=== PATIENT | male | born 2000 | race Caucasian/White ===

== ENCOUNTER 2022-11-14 02:08 | Inpatient (IN) | payer OTHER, SELFPAY ==
[2022-11-14 02:19] VITALS: BP 142/86; PULSE 96; RESP 17; TEMP 36.6; O2SAT 97; BMI 31.9
--- NOTE | 2022-11-14 02:35 | ED.PSYCH ---
HPI - Psych General Chief Complaint: Psychiatric Symptoms Stated Complaint: SI Time Seen by Provider: 11/14/22 02:09 Source: patient Mode of arrival: ambulatory Limitations: no limitations History of Present Illness HPI Narrative: Patient comes to the emergency room well anteriorly, complaining of worsening depression and suicidal ideation without a plan. Patient states that he has been feeling intermittently with depression. Patient states that approximately 2 years ago, he broke up with his ex-girlfriend, seems that this was a trigger to worsening his depression. Patient states that he used to take Wellbutrin, seems that it was working fairly well. Gradually, the patient weaned off of it and has been without any medication for 1+ years. The patient did not inform me directly, but did tell his nurse that approximately 2 years ago he attempted suicide, no specifics were discussed Related Data Home Medications Medication Instructions Recorded Confirmed No Known Home Meds 11/14/22 11/14/22 Allergies Allergy/AdvReac Type Severity Reaction Status Date / Time amoxicillin AdvReac Intermediate Rash Verified 11/14/22 02:13 cefazolin AdvReac Hives Verified 11/14/22 02:14 Review of Systems Review of Systems: Constitutional : No Weight loss, No Fever, No Chills, No Night Sweats, No Fatigue, No Malaise ENT/Mouth : No Hearing loss, No Ear Pain, No Nasal Congestion, No Sinus Pain, No Hoarseness, No sore throat, No Rhinorrhea, No Swallowing Difficulty Eyes: No Eye Pain, No Swelling, No Redness, No Foreign Body, No Discharge, No Vision Changes Cardiovascular : No Chest Pain, No SOB, No Dyspnea on Exertion, No Orthopnea, No Edema, No Palpitations Respiratory : No Cough, No Sputum, No Wheezing, No Smoke Exposure, No Dyspnea Gastrointestinal : No Nausea, No Vomiting, No Diarrhea, No Constipation, No abdominal Pain, No Hematochezia, No Melena Genitourinary : no irregular bleeding, No Dysuria, No Urinary Frequency, No Hematuria, No Urinary Incontinence, No Urgency, No Flank Pain, No Urinary Flow Changes, No Hesitancy Musculoskeletal : No joint pain, No Myalgias, No Joint Swelling Skin : No Skin Lesions, No rash Neuro : No Weakness, No Numbness, No Paresthesias, No Loss of Consciousness, No Dizziness, No Headache Psych : Complaining of depression, suicidal ideation without a plan Heme/Lymph: No Bruising, No Bleeding,No Lymphadenopathy Endocrine : No Polyuria, No Polydipsia, No Temperature Intolerance PMFSH Past Medical History Medical History (Updated 11/14/22 @ 02:40 by Sofía Lott MD) Depression Physical Exam Vital Signs: Vital Signs: Last Vital Signs Temp 97.8 F 11/14/22 02:19 Pulse 96 11/14/22 02:19 Resp 17 11/14/22 02:19 BP 142/86 H 11/14/22 02:19 Pulse Ox 97 11/14/22 02:19 O2 Del Method 11/14/22 02:19 BMI result Body Mass Index 31.9 Const: Other: Appearance: Alert. Oriented X3. No acute distress. Eyes: Pupils equal, round and reactive to light. ENT: Pharynx normal. Neck: Normal inspection. Neck supple. No lymph nodes noted. No crepitus CVS: Normal heart rate and rhythm. Pulses normal. Normal S1 and S2 Respiratory: No respiratory distress. Breath sounds normal. No Wheezing. No rales Abdomen: Soft and nontender. No rigidity. No distention. Skin: Skin warm and dry. Normal skin color. Normal skin turgor. Extremities: No lower extremity edema. No Lacerations. No Rash Neuro: Oriented X 3. No motor deficit. No sensory deficit. Moving all extremities. No slurred speech. CN 2 through 12 grossly intact Psych: calm, cooperative, tearful Course Course Course Narrative: Care team consult pending. Labs pending. Physician observation started that 02:30 Discharge Plan Discharge Clinical Impression: Depression Patient Disposition: Still a Patient Prescriptions: No Action No Known Home Meds
[2022-11-14 03:13] LABS: MANUAL DIFF FLAG NO
[2022-11-14 03:14] LABS: Basophils Absolute Auto 0.1 X10*3/uL (0.0-0.2); Basophils Percent Auto 0.5 % (0-2); Eosinophils Absolute Auto 0.1 X10*3/uL (0.0-0.4); Eosinophils Percent Auto 0.7 % (0-4); Hematocrit 44.7 % (42.0-52.0); Hemoglobin 15.2 g/dl (14.0-18.0); Imm Gran Abs Auto 0.04 X10*3/uL (0.00-0.03); Imm Gran Pct Auto 0.3 % (0.0-0.4); Lymphocytes Absolute Auto 2.6 X10*3/uL (1.2-4.9); Mean Corpuscular Hemoglobin 30.3 pg (27.0-33.0); Monocytes Percent Auto 7.6 % (2-11); Neutrophils Absolute Auto 9.2 x10*3/uL (2.0-8.3); Neutrophils Percent Auto 70.9 % (45-73); Platelet Count 373 X10*3/uL (160-400); Red Blood Count 5.02 X10*6/uL (4.60-5.80); Red Cell Distribution Width 12.9 % (11.0-16.0)
[2022-11-14 03:28] LABS: Amphetamine Screen Urine Not Detected (Not Detect); Barbiturates, Urine Not Detected (Not Detect); Benzodiazepines Screen Urine Not Detected (Not Detect); Cannabinoid Screen Urine Not Detected (Not Detect); Cocaine Screen Urine Not Detected (Not Detect); Fentanyl, urine Not Detected (Not Detect); Opiate Screen Urine Not Detected (Not Detect); Phencyclidine Screen Urine Not Detected (Not Detect)
[2022-11-14 03:30] LABS: Alanine Aminotransferase 22 U/L (0-40); Albumin Level 4.9 g/dL (3.5-5.0); Alkaline Phosphatase 61 U/L (39-117); Anion Gap 16 (12-20); Aspartate Amino Transferase 21 U/L (5-37); Bilirubin Total 0.3 mg/dL (0.0-1.0); Blood Urea Nitrogen 12 mg/dL (9-16); Calcium 9.7 mg/dL (8.4-10.2); Carbon Dioxide 25 mmol/L (22-29); Chloride 106 mmol/L (96-108); Creatinine Clr Calc Pharmacy 134.2; Estimated Glomerular Filt Rate > 60; Ethanol 199 mg/dL; Glucose Random 99 mg/dL (60-115); Potassium 4.4 mmol/L (3.3-5.1); Sodium 143 mmol/L (135-145)
[2022-11-14 03:34] LABS: COVID-19 Test Negative (Negative); IDNOW Serial# 16C4AD1C
--- NOTE | 2022-11-14 06:09 | PC.NURSE ---
Patient is and restless and intermittently sleeping, behavior non concerning, BAL 199 at 0338 Gaby made aware, patient will be assessed by care team in the morning, med rec completed/patient is currently not on any medication, will continue to monitor.
--- NOTE | 2022-11-14 11:44 | PHA.MEDREC ---
Pharmacy Consult ? Medication Reconciliation Pharmacy has completed the medication reconciliation. Reviewed med rec done by nursing (Pola). Cross-referenced claim history to confirm.
--- NOTE | 2022-11-14 13:29 | PC.NURSE ---
nurse to nurse given
[2022-11-14 18:31] VITALS: BP 140/84; PULSE 68; RESP 17; TEMP 36.5; O2SAT 99
[2022-11-14 20:01] VITALS: BP 140/80; PULSE 76; RESP 18; TEMP 36.6
[2022-11-14] MEDS: Gabapentin 300 MG CAPSULE PO (21:40)
[2022-11-14] MEDS: LORazepam 1 MG TABLET PO (21:40)
[2022-11-14] MEDS: traZODone HCL 50 MG TABLET PO (21:40)
[2022-11-15 06:00] VITALS: BP 125/74; PULSE 83; RESP 18; TEMP 36.7; O2SAT 96
[2022-11-15] MEDS: Gabapentin 300 MG CAPSULE PO ×3 (09:37→22:08)
--- NOTE | 2022-11-15 12:59 | HO.PSYADMNOT ---
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 Patient reports that he struggle with depression for years and in 2019 attempted suicide. At hospitalization he was started on Wellbutrin which was helpful and stayed on it for several months. Patient however decided to quit Wellbutrin because he knew he wanted to keep drinking and thought the 2 should not be combined; eventually he started drinking daily. About 6 months ago his depression started to worsen as did his anxiety. About 3 months ago his girlfriend broke up with him which cast him into a much deeper depression and patient developed diminished interest, low energy, poor concentration; his appetite fluctuated to over eating to hardly eating; trouble sleeping, or sleeping throughout the day; patient started missing work calling out sick due to depression. Over the past week he started having suicidal thoughts that maybe he would be better off . He did not have any plans or intention but the thoughts continued to come so told his father and came to the hospital. He still has passive thoughts of being but no intent or plans and wants help. For the past year patient has been drinking about 1/2-1 L of vodka a day; denies history of withdrawal; denies all other drug use; denies history of manic type episodes or behaviors; denies history of trauma. Patient endorses much anxiety, especially in the context social settings and even more so friendships and worries about how he is perceived. Patient agrees to get back on Wellbutrin as it helped with both depression and anxiety. 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 Past Psychiatric History: Psychiatric hospitalization 2019 at [facility] for suicide attempt; started on Wellbutrin at that time Medical Evaluation Reviewed: Yes [facility] Medical History (Updated 11/15/22 @ 17:36 by Tio Owen MD) Depression MDD (major depressive disorder), recurrent episode, severe Social anxiety disorder Family History: Mother: anxiety/depression Paternal uncle: Schizophrenia Social History: Lives at home with his parents Last year graduate school for counseling; 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 Substance History: Daily alcohol abuse up to a L a day of vodka; denies history of alcohol withdrawal Trauma History: Denies Diagnostics Vital Signs (24Hr): Vital Signs - 24 hr 11/14/22 18:31 11/14/22 20:01 11/15/22 06:00 Temperature 97.7 F 97.8 F 98.1 F Pulse Rate 68 76 83 Respiratory Rate 17 18 18 Blood Pressure 140/84 H 140/80 H 125/74 Pulse Oximetry 99 96 Oxygen Delivery Method Room Air Room Air BMI result Body Mass Index 31.9 Labs Results: 11/14/22 03:08 11/14/22 03:08 Labs: Laboratory Results - last 48 hr 11/14/22 11/14/22 11/14/22 02:50 02:51 03:08 WBC RBC Hgb Hct MCV MCH MCHC RDW Plt Count MPV Immature Gran % (Auto) Neut % (Auto) Lymph % (Auto) [place] % (Auto) Eos % (Auto) Baso % (Auto) Lymph # (Auto) [place] # (Auto) Eos # (Auto) Baso # (Auto) Abs Immat Gran (auto) Absolute Neuts (auto) Absolute Nucleated RBC Nucleated RBC % (auto) Sodium 143 Potassium 4.4 Chloride 106 Carbon Dioxide 25 Anion Gap 16 BUN 12 Creatinine 0.92 Estim Creat Clear Calc 134.2 Estimated GFR > 60 Random Glucose 99 Calcium 9.7 Total Bilirubin 0.3 AST 21 ALT 22 Alkaline Phosphatase 61 Total Protein 8.0 Albumin 4.9 Urine Opiates Screen Not Detected Urine Fentanyl Screen Not Detected Ur Barbiturates Screen Not Detected Ur Phencyclidine Scrn Not Detected Ur Amphetamines Screen Not Detected U Benzodiazepines Scrn Not Detected Urine Cocaine Screen Not Detected U Marijuana (THC) Screen Not Detected Ethyl Alcohol 199 COVID-19 ([facility]) Negative COVID-19 Clin Com See Note 11/14/22 03:08 WBC 13.0 H RBC 5.02 Hgb 15.2 Hct 44.7 MCV 89.0 MCH 30.3 MCHC 34.0 RDW 12.9 Plt Count 373 MPV 10.0 Immature Gran % (Auto) 0.3 Neut % (Auto) 70.9 Lymph % (Auto) 20.0 [place] % (Auto) 7.6 Eos % (Auto) 0.7 Baso % (Auto) 0.5 Lymph # (Auto) 2.6 [place] # (Auto) 1.0 Eos # (Auto) 0.1 Baso # (Auto) 0.1 Abs Immat Gran (auto) 0.04 H Absolute Neuts (auto) 9.2 H Absolute Nucleated RBC 0.000 Nucleated RBC % (auto) 0.0 Sodium Potassium Chloride Carbon Dioxide Anion Gap BUN Creatinine Estim Creat Clear Calc Estimated GFR Random Glucose Calcium Total Bilirubin AST ALT Alkaline Phosphatase Total Protein Albumin Urine Opiates Screen Urine Fentanyl Screen Ur Barbiturates Screen Ur Phencyclidine Scrn Ur Amphetamines Screen U Benzodiazepines Scrn Urine Cocaine Screen U Marijuana (THC) Screen Ethyl Alcohol COVID-19 ([facility]) COVID-19 Clin Com Meds/Allergies Meds Home Medications Medication Instructions Recorded Confirmed Type No Known Home Meds 11/14/22 11/14/22 History Allergies Allergies Allergy/AdvReac Type Severity Reaction Status Date / Time amoxicillin AdvReac Intermediate Rash Verified 11/14/22 02:13 cefazolin AdvReac Hives Verified 11/14/22 02:14 Mental Status Exam Mental Status Exam Narrative: Pt is alert and oriented; behavior is cooperative, friendly and calm; patient is not in distress; dressed in casual attire, scruffy elliott but well groomed with adequate hygiene; mood is described as anxious...depressed and affect congruent; eye contact appropriate; Speech is normal rate, volume and prosody and not pressured; no psychomotor agitation/retardation present; thought process is organized and goal directed; Thought content is on getting help; otherwise pertinent to relevant topics and without any delusional content, paranoid ideations or grandiosity; intermittent passive SI; no HI. There is no evidence of perceptual disturbance and denies AVH. Patients insight and judgment are impaired. 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 -alcoholism clearly contributing to depression; patient remains depressed but SI is clearing. Patient presenting for help. -thankfully patient has resources and is nearing and graduate school, has a job and supportive parents -patient is low scoring on CIWA Plan: CV Q 15 minutes checks Continue CIWA for now; low scoring. Likely able to discontinue soon Continue gabapentin taper Restart Wellbutrin XL 150 mg daily Trazodone 50 mg q.h.s. p.r.n. for insomnia Clonidine 0.1 mg q.4 PRN for anxiety insomnia Will seek collateral Patient agrees that he needs therapy and wants help setting this up Patient educated on: diagnosis, medication risk/benefits, substance abuse and therapeutic strategies Informed Consent: understands Reason for continued inpatient stay Substantial Risk for: rapid decompensation Statement Statement: I have reviewed the history and physical and performed a pertinent examination on my patient. No changes have occurred unless specified. Time Spent With Patient Time: Total time managing care of this patient today ____ minutes.
[2022-11-15 18:00] VITALS: BP 132/77; PULSE 74; RESP 18; TEMP 36.4; O2SAT 99
[2022-11-15] MEDS: cloNIDine HCL 0.1 MG TABLET PO (18:35)
[2022-11-15] MEDS: traZODone HCL 50 MG TABLET PO (22:08)
[2022-11-16 06:00] VITALS: BP 126/75; PULSE 78; RESP 14; TEMP 36.4; O2SAT 100
[2022-11-16] MEDS: buPROPion HCl XL 150 MG TAB.ER.24H PO (08:53)
[2022-11-16] MEDS: Gabapentin 300 MG CAPSULE PO ×3 (08:54→21:58)
--- NOTE | 2022-11-16 15:13 | HO.PSYCHPN ---
Subjective Subjective Date of Service: 11/16/22 Reason For Visit: depression Interim History: pt says feeling a little better; still some transient SI thoughts; tolerating meds. No w/drawal. Sleep ok -talked about relationship with mom, worried that talking w/ her will unravel her since she's already helping her demented brother. Instead, talks w/ his dad Mental Status Exam Mental Status Exam Narrative: Pt is alert and oriented; behavior is cooperative, friendly and calm; patient is not in distress; dressed in casual attire, scruffy elliott but well groomed with adequate hygiene; mood is described as anxious...depressed and affect congruent; eye contact appropriate; Speech is normal rate, volume and prosody and not pressured; no psychomotor agitation/retardation present; thought process is organized and goal directed; Thought content is on getting help; otherwise pertinent to relevant topics and without any delusional content, paranoid ideations or grandiosity; intermittent passive SI; no HI. There is no evidence of perceptual disturbance and denies AVH. Patients insight and judgment are impaired. Diagnostics Vital Signs (24Hr): Vital Signs - 24 hr 11/15/22 18:00 11/16/22 06:00 Temperature 97.5 F 97.5 F Pulse Rate 74 78 Respiratory Rate 18 14 Blood Pressure 132/77 126/75 Pulse Oximetry 99 100 Oxygen Delivery Method Room Air Room Air BMI result Body Mass Index 31.9 Labs Results: 11/14/22 03:08 11/14/22 03:08 Medications Medications Current Medications Acetaminophen (Acetaminophen 325 Mg Tablet) 650 mg PO Q6H PRN PRN Reason: Headache/Pain Mild Scale (1-3) Al Hydroxide/Mg Hydroxide (Magnesium Hydrox/Alum Hydrox 30 Ml Oral.Susp) 30 ml PO Q6H PRN PRN Reason: Heartburn/Nausea Bupropion HCl (Bupropion Hcl Xl 150 Mg Tab.Er.24h) 150 mg PO DAILY RODOLFO Last Admin: 11/16/22 08:53 Dose: 150 mg Clonidine HCl (Clonidine Hcl 0.1 Mg Tablet) 0.1 mg PO Q4H PRN; Protocol PRN Reason: anxiety Last Admin: 11/15/22 18:35 Dose: 0.1 mg Gabapentin (Gabapentin 300 Mg Capsule) 300 mg PO TID RODOLFO Stop: 11/16/22 23:50 Last Admin: 11/16/22 14:02 Dose: 300 mg Gabapentin (Gabapentin 300 Mg Capsule) 300 mg PO BID RODOLFO Lorazepam (Lorazepam 1 Mg Tablet) 1 mg PO Q2H PRN PRN Reason: CIWA 6-10 Last Admin: 11/14/22 21:40 Dose: 1 mg Lorazepam (Lorazepam 1 Mg Tablet) 2 mg PO Q2H PRN PRN Reason: CIWA 11 and above Magnesium Hydroxide (Milk Of Magnesia 30 Ml Oral.Susp) 30 ml PO DAILY PRN PRN Reason: Constipation Nicotine Polacrilex (Nicotine Polacrilex 2 Mg Gum) 4 mg BUCCAL Q2H PRN PRN Reason: Nicotine Cravings Trazodone HCl (Trazodone Hcl 50 Mg Tablet) 50 mg PO BEDTIME PRN PRN Reason: Insomnia Last Admin: 11/15/22 22:08 Dose: 50 mg Allergies Allergies Allergy/AdvReac Type Severity Reaction Status Date / Time amoxicillin AdvReac Intermediate Rash Verified 11/14/22 02:13 cefazolin AdvReac Hives Verified 11/14/22 02:14 Assessment & Plan Assessment & Plan (1) MDD (major depressive disorder), recurrent episode, severe: Status: Acute Code(s): F33.2 - Major depressive disorder, recurrent severe without psychotic features (2) Social anxiety disorder: Status: Acute Code(s): F40.10 - Social phobia, unspecified Plan 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 -alcoholism clearly contributing to depression; patient remains depressed but SI is clearing. Patient presenting for help. -thankfully patient has resources and is nearing and graduate school, has a job and supportive parents -patient is low scoring on CIWA 11/16 little better; momentary SI; tolerating meds. attending groups Plan: CV Q 15 minutes checks DC CIWA; no symptoms Continue gabapentin taper Restart Wellbutrin XL 150 mg daily; lilialey taper Trazodone 50 mg q.h.s. p.r.n. for insomnia Clonidine 0.1 mg q.4 PRN for anxiety insomnia Will seek collateral Patient agrees that he needs therapy and wants help setting this up I spent minutes with the patient and/or on the patient floor today, greater than?50% of which was spent counseling/coordinating care. Patient educated on: diagnosis and medication risk/benefits Informed Consent: understands Reason for contiued inpatient stay Substantial Risk for: rapid decompensation Time Spent With Patient Time: Total time managing care of this patient today ____ minutes.
--- NOTE | 2022-11-16 16:01 | MHC.CLN ---
NUTRITION CONSULT CONSULT FOR WEIGHT LOSS. PATIENT WOULD LIKE TO MAINTAIN WEIGHT AND INCREASE PROTEIN. ADDING ENSURE MAX PROTEIN BID TO PROVIDE ADDITIONAL 300 KCALS, 60 G PROTEIN.
[2022-11-16 18:00] VITALS: BP 127/66; PULSE 87; TEMP 36.3
[2022-11-16] MEDS: traZODone HCL 50 MG TABLET PO (21:59)
[2022-11-17] MEDS: buPROPion HCl XL 150 MG TAB.ER.24H PO (08:46)
[2022-11-17] MEDS: Gabapentin 300 MG CAPSULE PO ×2 (08:46→20:54)
[2022-11-17 08:48] VITALS: BP 120/61; PULSE 74; RESP 18; TEMP 36.2; O2SAT 98
[2022-11-17] MEDS: Acetaminophen 325 MG TABLET 975 MG PO (11:09)
[2022-11-17] MEDS: cloNIDine HCL 0.1 MG TABLET PO ×2 (13:11→20:53)
[2022-11-17 13:13] VITALS: BP 135/61; PULSE 81
--- NOTE | 2022-11-17 14:40 | HO.PSYCHPN ---
Subjective Subjective Date of Service: 11/17/22 Reason For Visit: depression Interim History: Patient said mood is a little better today. Denies any SI at all. Said he had a little trouble sleeping last night, just thinking about things but agrees to have clonidine scheduled at bedtime tonight to see if that is helpful. Also agrees to increase Wellbutrin to 300 mg, the dose he was on before. Patient has been attending groups and says it has been helpful. Chemical Librarian and patient also discussed risks of relapse and patient said his plan is to go to AA groups immediately on discharge. He shared that his uncle is of a recovering alcoholic and lives at his house and will be a helpful resource. Mental Status Exam Mental Status Exam Narrative: Pt is alert and oriented; behavior is cooperative, friendly and calm; patient is not in distress; dressed in casual attire, scruffy elliott but well groomed with adequate hygiene; mood is described as a little better and affect congruent; eye contact appropriate; Speech is normal rate, volume and prosody and not pressured; no psychomotor agitation/retardation present; thought process is organized and goal directed; Thought content is on getting help; otherwise pertinent to relevant topics and without any delusional content, paranoid ideations or grandiosity; No SI; no HI. There is no evidence of perceptual disturbance and denies AVH. Patients insight and judgment are improving. Diagnostics Vital Signs (24Hr): Vital Signs - 24 hr 11/16/22 18:00 11/17/22 08:48 11/17/22 13:13 Temperature 97.4 F 97.2 F Pulse Rate 87 74 81 Respiratory Rate 18 Blood Pressure 127/66 120/61 135/61 Pulse Oximetry 98 Oxygen Delivery Method Room Air BMI result Body Mass Index 31.9 Labs Results: 11/14/22 03:08 11/14/22 03:08 Medications Medications Current Medications Acetaminophen (Acetaminophen 325 Mg Tablet) 975 mg PO TID PRN PRN Reason: Headache/Pain Mild Scale (1-3) Last Admin: 11/17/22 11:09 Dose: 975 mg Al Hydroxide/Mg Hydroxide (Magnesium Hydrox/Alum Hydrox 30 Ml Oral.Susp) 30 ml PO Q6H PRN PRN Reason: Heartburn/Nausea Clonidine HCl (Clonidine Hcl 0.1 Mg Tablet) 0.1 mg PO Q4H PRN; Protocol PRN Reason: anxiety Last Admin: 11/17/22 13:11 Dose: 0.1 mg Gabapentin (Gabapentin 300 Mg Capsule) 300 mg PO BID RODOLFO Stop: 11/18/22 23:00 Last Admin: 11/17/22 08:46 Dose: 300 mg Magnesium Hydroxide (Milk Of Magnesia 30 Ml Oral.Susp) 30 ml PO DAILY PRN PRN Reason: Constipation Nicotine Polacrilex (Nicotine Polacrilex 2 Mg Gum) 4 mg BUCCAL Q2H PRN PRN Reason: Nicotine Cravings Trazodone HCl (Trazodone Hcl 50 Mg Tablet) 50 mg PO BEDTIME PRN PRN Reason: Insomnia Last Admin: 11/16/22 21:59 Dose: 50 mg Allergies Allergies Allergy/AdvReac Type Severity Reaction Status Date / Time amoxicillin AdvReac Intermediate Rash Verified 11/14/22 02:13 cefazolin AdvReac Hives Verified 11/14/22 02:14 Assessment & Plan Assessment & Plan (1) MDD (major depressive disorder), recurrent episode, severe: Status: Acute Code(s): F33.2 - Major depressive disorder, recurrent severe without psychotic features (2) Social anxiety disorder: Status: Acute Code(s): F40.10 - Social phobia, unspecified Plan 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 -alcoholism clearly contributing to depression; patient remains depressed but SI is clearing. Patient presenting for help. -thankfully patient has resources and is nearing and graduate school, has a job and supportive parents -patient is low scoring on CIWA 11/16 little better; momentary SI; tolerating meds. attending groups 11/17 patient improving; mood a little better and no SI today. Still trouble sleeping. Agrees to adjusting medications further. Also discussed disposition. Patient remains engaged in treatment, attending groups, forthcoming in interview sessions. Discussed case with social worker delinquency prevention as well as nursing agree patient seems to be improving. Plan: CV Q 15 minutes checks DC CIWA; no symptoms Continue gabapentin taper Increase to Wellbutrin XL 300 mg daily; Trazodone 50 mg q.h.s. p.r.n. for insomnia Clonidine 0.1 mg q.4 PRN for anxiety insomnia Clonidine 0.1 mg q.h.s. Patient agrees that he needs therapy and wants help setting this up; also agrees to AA I spent minutes with the patient and/or on the patient floor today, greater than?50% of which was spent counseling/coordinating care. Patient educated on: diagnosis and medication risk/benefits Informed Consent: understands Reason for contiued inpatient stay Substantial Risk for: stable for discharge Time Spent With Patient Time: Total time managing care of this patient today ____ minutes.
[2022-11-17 18:00] VITALS: BP 138/62; PULSE 73; RESP 16; TEMP 36.3; O2SAT 98
[2022-11-17] MEDS: traZODone HCL 50 MG TABLET PO (22:16)
[2022-11-18] MEDS: Gabapentin 300 MG CAPSULE PO ×2 (09:11→19:21)
[2022-11-18] MEDS: buPROPion HCl XL 300 MG TAB.ER.24H PO (09:11)
[2022-11-18 09:13] VITALS: BP 128/70; PULSE 82; RESP 98; TEMP 36.2; O2SAT 98
--- NOTE | 2022-11-18 10:22 | HO.PSYCHPN ---
Subjective Subjective Date of Service: 11/18/22 Reason For Visit: depression Interim History: Patient reports feeling better today. No SI. Says he was able to sleep better with the clonidine and trazodone together agrees to have both them scheduled. Patient said he had some bouts of anxiety but was able to use coping skills which he has learned on the unit and his anxiety state under good control. Patient is ambivalent about partial, saying he still needs to work however he will check on his work schedule. Aftercare being set up by social media coordinator. Patient also tolerating increased Wellbutrin. Mental Status Exam Mental Status Exam Narrative: Pt is alert and oriented; behavior is cooperative, friendly and calm; patient is not in distress; dressed in casual attire, scruffy elliott but well groomed with adequate hygiene; mood is described as good and affect congruent; eye contact appropriate; Speech is normal rate, volume and prosody and not pressured; no psychomotor agitation/retardation present; thought process is organized and goal directed; Thought content is on staying stable; otherwise pertinent to relevant topics and without any delusional content, paranoid ideations or grandiosity; No SI; no HI. There is no evidence of perceptual disturbance and denies AVH. Patients insight and judgment are fair. Diagnostics Vital Signs (24Hr): Vital Signs - 24 hr 11/17/22 13:13 11/17/22 18:00 11/18/22 09:13 Temperature 97.3 F 97.2 F Pulse Rate 81 73 82 Respiratory Rate 16 98 H Blood Pressure 135/61 138/62 128/70 Pulse Oximetry 98 98 Oxygen Delivery Method Room Air Room Air BMI result Body Mass Index 31.9 Labs Results: 11/14/22 03:08 11/14/22 03:08 Medications Medications Current Medications Acetaminophen (Acetaminophen 325 Mg Tablet) 975 mg PO TID PRN PRN Reason: Headache/Pain Mild Scale (1-3) Last Admin: 11/17/22 11:09 Dose: 975 mg Al Hydroxide/Mg Hydroxide (Magnesium Hydrox/Alum Hydrox 30 Ml Oral.Susp) 30 ml PO Q6H PRN PRN Reason: Heartburn/Nausea Bupropion HCl (Bupropion Hcl Xl 300 Mg Tab.Er.24h) 300 mg PO DAILY RODOLFO Last Admin: 11/18/22 09:11 Dose: 300 mg Clonidine HCl (Clonidine Hcl 0.1 Mg Tablet) 0.1 mg PO Q4H PRN; Protocol PRN Reason: anxiety Last Admin: 11/17/22 13:11 Dose: 0.1 mg Clonidine HCl (Clonidine Hcl 0.1 Mg Tablet) 0.1 mg PO BEDTIME RODOLFO; Protocol Last Admin: 11/17/22 20:53 Dose: 0.1 mg Gabapentin (Gabapentin 300 Mg Capsule) 300 mg PO BID RODOLFO Stop: 11/18/22 23:00 Last Admin: 11/18/22 09:11 Dose: 300 mg Gabapentin (Gabapentin 300 Mg Capsule) 300 mg PO DAILY RODOLFO Magnesium Hydroxide (Milk Of Magnesia 30 Ml Oral.Susp) 30 ml PO DAILY PRN PRN Reason: Constipation Nicotine Polacrilex (Nicotine Polacrilex 2 Mg Gum) 4 mg BUCCAL Q2H PRN PRN Reason: Nicotine Cravings Trazodone HCl (Trazodone Hcl 50 Mg Tablet) 50 mg PO BEDTIME PRN PRN Reason: Insomnia Last Admin: 11/17/22 22:16 Dose: 50 mg Allergies Allergies Allergy/AdvReac Type Severity Reaction Status Date / Time amoxicillin AdvReac Intermediate Rash Verified 11/14/22 02:13 cefazolin AdvReac Hives Verified 11/14/22 02:14 Assessment & Plan Assessment & Plan (1) MDD (major depressive disorder), recurrent episode, severe: Status: Acute Code(s): F33.2 - Major depressive disorder, recurrent severe without psychotic features (2) Social anxiety disorder: Status: Acute Code(s): F40.10 - Social phobia, unspecified Plan 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 -alcoholism clearly contributing to depression; patient remains depressed but SI is clearing. Patient presenting for help. -thankfully patient has resources and is nearing and graduate school, has a job and supportive parents -patient is low scoring on CIWA 11/16 little better; momentary SI; tolerating meds. attending groups 11/17 patient improving; mood a little better and no SI today. Still trouble sleeping. Agrees to adjusting medications further. Also discussed disposition. Patient remains engaged in treatment, attending groups, forthcoming in interview sessions. Discussed case with social media coordinator as well as nursing agree patient seems to be improving. 11/18 continues to improve and again no SI today. If he remains stable will proceed with discharge plans for Wednesday. Patient tolerating increased dose of Wellbutrin. Would like trazodone scheduled to bedtime. Remains engaged in treatment, groups and is using coping skills effectively Plan: CV Q 15 minutes checks Continue gabapentin taper Increase to Wellbutrin XL 300 mg daily; Trazodone 50 mg q.h.s. and extra 50 mg as p.r.n. for continued insomnia Clonidine 0.1 mg q.4 PRN for anxiety insomnia Clonidine 0.1 mg q.h.s. Patient agrees that he needs therapy and wants help setting this up; also agrees to AA I spent minutes with the patient and/or on the patient floor today, greater than?50% of which was spent counseling/coordinating care. Patient educated on: diagnosis and medication risk/benefits Informed Consent: understands Reason for contiued inpatient stay Substantial Risk for: stable for discharge Time Spent With Patient Time: Total time managing care of this patient today ____ minutes.
[2022-11-18 17:11] VITALS: BP 120/63; PULSE 65; RESP 16; TEMP 36.6; O2SAT 99
[2022-11-18] MEDS: traZODone HCL 50 MG TABLET PO (19:22)
[2022-11-18] MEDS: cloNIDine HCL 0.1 MG TABLET PO (19:22)
[2022-11-19 07:00] VITALS: BMI 32.4
[2022-11-19] MEDS: buPROPion HCl XL 300 MG TAB.ER.24H PO (09:08)
[2022-11-19] MEDS: Gabapentin 300 MG CAPSULE PO (09:09)
[2022-11-19 09:11] VITALS: BP 125/66; PULSE 70; RESP 18; TEMP 36.4; O2SAT 100
--- NOTE | 2022-11-19 10:30 | P.PNPSI_ITS ---
Subjective Subjective Date of Service: 11/19/22 Reason For Visit: depression Interim History: pt report he's in a good mood and feels ready for discharge. He says his anxiety is manageable and he's tolerating medications well; pt says he slept well last night. Mental Status Exam Mental Status Exam Narrative: Pt is alert and oriented; behavior is cooperative, friendly and calm; patient is not in distress; dressed in casual attire, scruffy elliott but well groomed with adequate hygiene; mood is described as good and affect congruent; eye contact appropriate; Speech is normal rate, volume and prosody and not pressured; no psychomotor agitation/retardation present; thought process is organized and goal directed; Thought content is on staying stable; otherwise pertinent to relevant topics and without any delusional content, paranoid ideations or grandiosity; No SI; no HI. There is no evidence of perceptual disturbance and denies AVH. Patients insight and judgment are fair. Diagnostics Vital Signs (24Hr): Vital Signs - 24 hr 11/18/22 17:11 11/19/22 09:11 Temperature 97.9 F 97.6 F Pulse Rate 65 70 Respiratory Rate 16 18 Blood Pressure 120/63 125/66 Pulse Oximetry 99 100 Oxygen Delivery Method Room Air Room Air BMI result Body Mass Index 32.4 Labs Results: 11/14/22 03:08 11/14/22 03:08 Medications Medications Current Medications Acetaminophen (Acetaminophen 325 Mg Tablet) 975 mg PO TID PRN PRN Reason: Headache/Pain Mild Scale (1-3) Last Admin: 11/17/22 11:09 Dose: 975 mg Al Hydroxide/Mg Hydroxide (Magnesium Hydrox/Alum Hydrox 30 Ml Oral.Susp) 30 ml PO Q6H PRN PRN Reason: Heartburn/Nausea Bupropion HCl (Bupropion Hcl Xl 300 Mg Tab.Er.24h) 300 mg PO DAILY RODOLFO Last Admin: 11/19/22 09:08 Dose: 300 mg Clonidine HCl (Clonidine Hcl 0.1 Mg Tablet) 0.1 mg PO Q4H PRN; Protocol PRN Reason: anxiety Last Admin: 11/17/22 13:11 Dose: 0.1 mg Clonidine HCl (Clonidine Hcl 0.1 Mg Tablet) 0.1 mg PO BEDTIME RODOLFO; Protocol Last Admin: 11/18/22 19:22 Dose: 0.1 mg Gabapentin (Gabapentin 300 Mg Capsule) 300 mg PO DAILY [facility] Last Admin: 11/19/22 09:09 Dose: 300 mg Magnesium Hydroxide (Milk Of Magnesia 30 Ml Oral.Susp) 30 ml PO DAILY PRN PRN Reason: Constipation Nicotine Polacrilex (Nicotine Polacrilex 2 Mg Gum) 4 mg BUCCAL Q2H PRN PRN Reason: Nicotine Cravings Trazodone HCl (Trazodone Hcl 50 Mg Tablet) 50 mg PO BEDTIME [facility] Last Admin: 11/18/22 19:22 Dose: 50 mg Trazodone HCl (Trazodone Hcl 50 Mg Tablet) 50 mg PO BEDTIME PRN PRN Reason: continued insomnia Allergies Allergies Allergy/AdvReac Type Severity Reaction Status Date / Time amoxicillin AdvReac Intermediate Rash Verified 11/14/22 02:13 cefazolin AdvReac Hives Verified 11/14/22 02:14 Assessment & Plan Assessment & Plan (1) MDD (major depressive disorder), recurrent episode, severe: Status: Acute Code(s): F33.2 - Major depressive disorder, recurrent severe without psychotic features (2) Social anxiety disorder: Status: Acute Code(s): F40.10 - Social phobia, unspecified Plan 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 -alcoholism clearly contributing to depression; patient remains depressed but SI is clearing. Patient presenting for help. -thankfully patient has resources and is nearing and graduate school, has a job and supportive parents -patient is low scoring on CIWA 11/16 little better; momentary SI; tolerating meds. attending groups 11/17 patient improving; mood a little better and no SI today. Still trouble sleeping. Agrees to adjusting medications further. Also discussed disposition. Patient remains engaged in treatment, attending groups, forthcoming in interview sessions. Discussed case with social psychologist as well as nursing agree patient seems to be improving. 11/18 continues to improve and again no SI today. If he remains stable will proceed with discharge plans for Wednesday. Patient tolerating increased dose of Wellbutrin. Would like trazodone scheduled to bedtime. 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 Plans to go to AA; he's optimistic about sobriety; pt not in imminent risk of harm to self or others and appropriate to continue tx in the community Plan: CV Q 15 minutes checks Continue gabapentin taper Wellbutrin XL 300 mg daily; Trazodone 50 mg q.h.s. and extra 50 mg as p.r.n. for continued insomnia Clonidine 0.1 mg q.4 PRN for anxiety insomnia Clonidine 0.1 mg q.h.s. Patient agrees that he needs therapy and wants help setting this up; also agrees to AA I spent minutes with the patient and/or on the patient floor today, greater than?50% of which was spent counseling/coordinating care. Patient educated on: diagnosis Informed Consent: understands Reason for contiued inpatient stay Substantial Risk for: stable for discharge Time Spent With Patient Time: Total time managing care of this patient today ____ minutes.
[2022-11-19] MEDS: Acetaminophen 325 MG TABLET 975 MG PO (10:59)
[2022-11-19 18:00] VITALS: BP 126/68; PULSE 68; RESP 16; TEMP 36.4; O2SAT 96
--- NOTE | 2022-11-19 20:57 | PM.PSYDC ---
DS: Providers Provider Date of Service: 11/20/22 Date of admission: 11/14/22 18:43 Date of discharge: 11/20/22 Primary care physician: None Physician Attending physician on admission: Tio Owen Attending physician on discharge: Tio Owen DS: Diagnosis Discharge Diagnosis (1) MDD (major depressive disorder), recurrent episode, severe: Status: Acute (2) Social anxiety disorder: Status: Acute DS: Medications Discharge Medications Home Medications: Home Medications Medication Instructions Recorded Confirmed No Known Home Meds 11/14/22 11/14/22 Previous Rx's Medication Instructions Recorded bupropion HCl 300 mg 24 hr tablet, 300 mg PO DAILY 30 days #30 tabs 11/19/22 extended release clonidine HCl 0.1 mg tablet 0.1 mg PO Q4H PRN anxiety/insomnia 11/19/22 30 days #90 tabs trazodone 50 mg tablet 50 mg PO BEDTIME PRN continued 11/19/22 insomnia 30 days #30 tabs Mental Status Exam Mental Status Exam Narrative: Pt is alert and oriented; behavior is cooperative, friendly and calm; patient is not in distress; dressed in casual attire, scruffy elliott but well groomed with adequate hygiene; mood is described as good and affect congruent; eye contact appropriate; Speech is normal rate, volume and prosody and not pressured; no psychomotor agitation/retardation present; thought process is organized and goal directed; Thought content is on staying stable; otherwise pertinent to relevant topics and without any delusional content, paranoid ideations or grandiosity; No SI; no HI. There is no evidence of perceptual disturbance and denies AVH. Patients insight and judgment are fair. Data Data Completed and Pending Completed studies during hospitalization [Text1]: 11/14/22 11/14/22 11/14/22 02:50 02:51 03:08 WBC RBC Hgb Hct MCV MCH MCHC RDW Plt Count MPV Immature Gran % (Auto) Neut % (Auto) Lymph % (Auto) [place] % (Auto) Eos % (Auto) Baso % (Auto) Lymph # (Auto) [place] # (Auto) Eos # (Auto) Baso # (Auto) Abs Immat Gran (auto) Absolute Neuts (auto) Absolute Nucleated RBC Nucleated RBC % (auto) Sodium 143 Potassium 4.4 Chloride 106 Carbon Dioxide 25 Anion Gap 16 BUN 12 Creatinine 0.92 Estim Creat Clear Calc 134.2 Estimated GFR > 60 Random Glucose 99 Calcium 9.7 Total Bilirubin 0.3 AST 21 ALT 22 Alkaline Phosphatase 61 Total Protein 8.0 Albumin 4.9 Urine Opiates Screen Not Detected Urine Fentanyl Screen Not Detected Ur Barbiturates Screen Not Detected Ur Phencyclidine Scrn Not Detected Ur Amphetamines Screen Not Detected U Benzodiazepines Scrn Not Detected Urine Cocaine Screen Not Detected U Marijuana (THC) Screen Not Detected Ethyl Alcohol 199 COVID-19 ([facility]) Negative COVID-19 Clin Com See Note 11/14/22 03:08 WBC 13.0 H RBC 5.02 Hgb 15.2 Hct 44.7 MCV 89.0 MCH 30.3 MCHC 34.0 RDW 12.9 Plt Count 373 MPV 10.0 Immature Gran % (Auto) 0.3 Neut % (Auto) 70.9 Lymph % (Auto) 20.0 [place] % (Auto) 7.6 Eos % (Auto) 0.7 Baso % (Auto) 0.5 Lymph # (Auto) 2.6 [place] # (Auto) 1.0 Eos # (Auto) 0.1 Baso # (Auto) 0.1 Abs Immat Gran (auto) 0.04 H Absolute Neuts (auto) 9.2 H Absolute Nucleated RBC 0.000 Nucleated RBC % (auto) 0.0 Sodium Potassium Chloride Carbon Dioxide Anion Gap BUN Creatinine Estim Creat Clear Calc Estimated GFR Random Glucose Calcium Total Bilirubin AST ALT Alkaline Phosphatase Total Protein Albumin Urine Opiates Screen Urine Fentanyl Screen Ur Barbiturates Screen Ur Phencyclidine Scrn Ur Amphetamines Screen U Benzodiazepines Scrn Urine Cocaine Screen U Marijuana (THC) Screen Ethyl Alcohol COVID-19 ([facility]) COVID-19 Clin Com DS: Summary Hospital Course Hospital Course: HPI: 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 -alcoholism clearly contributing to depression; patient remains depressed but SI is clearing.? Patient presenting for help. -thankfully patient has resources and is nearing and graduate school, has a job and supportive parents -patient is low scoring on [facility] Hospital course: 11/16 little better; momentary SI; tolerating meds. attending groups 11/17 patient improving; mood a little better and no SI today.? Still trouble sleeping.? Agrees to adjusting medications further.? Also discussed disposition.? Patient remains engaged in treatment, attending groups, forthcoming in interview sessions.? Discussed case with bilingual social worker as well as nursing agree patient seems to be improving. 11/18 continues to improve and again no SI today.? If he remains stable will proceed with discharge plans for Wednesday.? Patient tolerating increased dose of Wellbutrin.? Would like trazodone scheduled to bedtime.? Remains engaged in treatment, groups and is using coping skills effectively Patient appropriate with peers and staff; patient has demonstrated good behavioral and impulse control on the unit. 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 Plans to go to AA; he's optimistic about sobriety; pt not in imminent risk of harm to self or others and appropriate to continue tx in the community Time spent discussing smoking cessation with patient: 3 to 10 minutes Status at Discharge Functional status at discharge: independent ambulation Overall status at discharge: patient is back to baseline Time Spent with Patient Time attestation: Total time managing care of this patient today ____ minutes. Time spent: Less than 30 minutes Discharge Plan Discharge Anticipated Discharge Date/Time: 11/20/22 13:00 Patient Disposition: Home, Self-Care Discharge Diagnosis: MDD, recurrent, severe in full remission Referrals: Sheila Feldman [Other] - 11/27/22 1:00 pm (Initial diagnostic evaluation for therapy Appointment is by tele-health. Please Check your email for a link to the appointment.) Nadia Uriarte [Other] - 12/17/22 11:00 am (Initial diagnostic evaluation for psychiatry Appointment is by tele-health. Please Check your email for a link to the appointment.) Nadia Uriarte [Other] - 01/18/23 10:00 am ( medication management appointment. Appointment is by tele-health. Please Check your email for a link to the appointment.) Physician,None [Primary Care Provider] - 1 Week Discharge Medications: New clonidine HCl 0.1 mg Tablet 0.1 mg PO Q4H PRN (Reason: anxiety/insomnia) 30 Days Qty: 90 1RF Protocol: Hold for SBP< HOLD for SBP < : 90 bupropion HCl 300 mg Tablet Extended Release 24 Hr 300 mg PO DAILY 30 Days Qty: 30 1RF trazodone 50 mg Tablet 50 mg PO BEDTIME PRN (Reason: continued insomnia) 30 Days Qty: 30 0RF No Action No Known Home Meds Discharge Orders: Discharge Order (Routine); Ordered 11/20/22 Ordered By: Tio Owen Diet: Regular diet Activity on Discharge: As tolerated Stand Alone Forms: Patient Portal Discharge page, Community Support Care Plan Goals: Maintain mood and safe behaviors Take medications as prescribed Continue to pursue sobriety Practice coping skills Continue with outpatient providers and reach out to them as needed Health Concerns: Mood stability and behaviors Sobriety Plan of Treatment: Follow up with your Psychiatric provider and other outpatient providers regarding above concerns Take medications as prescribed Assessment: Risk assessment at time of discharge:? Patient was interviewed prior to discharge and found to be fully oriented and without any SI or HI. Patient has insight and demonstrates good judgment in terms of wanting to pursue treatment. Patient is not in imminent risk of harm to self or others and has a safety plan that includes presenting to the closest ER or calling 911 if feeling unsafe.? Patient has been observed closely by nursing and unit staff throughout admission; patient has not engaged in any behaviors that suggest dangerousness to self or others and has demonstrated appropriate behaviors and impulse control Discharge Date/Time: 11/20/22 13:39
[2022-11-19] MEDS: traZODone HCL 50 MG TABLET PO (22:12)
[2022-11-19] MEDS: cloNIDine HCL 0.1 MG TABLET PO (22:12)
[2022-11-20 06:00] VITALS: BP 132/65; PULSE 68; RESP 16; TEMP 36.2; O2SAT 100
[2022-11-20] MEDS: Gabapentin 300 MG CAPSULE PO (08:22)
[2022-11-20] MEDS: buPROPion HCl XL 300 MG TAB.ER.24H PO (08:22)
[2022-11-20] MEDS: cloNIDine HCL 0.1 MG TABLET PO (13:20)
== END 2022-11-20 13:39 | disposition home or self-care (01) | DRG 751 ==
LOC: HO.ED 11:37 → HO.PM5 19:20
PROVIDERS: Admitting Provider Psychiatry & Neurology Psychiatry; Emergency Provider Emergency Medicine; Visit Provider Psychiatry & Neurology Psychiatry
DX: F33.2 Major depressive disorder, recurrent severe without psychotic features (principal); R45.851 Suicidal ideations; Z91.14 Patient's other noncompliance with medication regimen; F40.10 Social phobia, unspecified; F10.20 Alcohol dependence, uncomplicated; Y90.6 Blood alcohol level of 120-199 mg/100 ml; Z20.822 Contact with and (suspected) exposure to COVID-19; Z87.891 Personal history of nicotine dependence; Z91.51 Personal history of suicidal behavior; Z23 Encounter for immunization; Z88.0 Allergy status to penicillin; Z88.1 Allergy status to other antibiotic agents; Z79.899 Other long term (current) drug therapy
CPT/HCPCS: 36415; 80053; 80307; 82077; 85025; 87635; 90686; 99285